=== PATIENT | female | born 1965 | race Caucasian/White ===

== ENCOUNTER 2016-07-08 11:07 | Outpatient (CLI) | payer MEDICAID | END 2016-07-08 23:59 | DX: Z13.9 Encounter for screening, unspecified (principal) ==

== ENCOUNTER 2017-03-09 17:15 | Outpatient (CLI) | payer MEDICAID | END 2017-03-09 17:16 | disposition EMS.NT | LOC: EMS 17:15 | PROVIDERS: ATTEND Surgery | DX: M79.602 Pain in left arm (principal); V43.53XA Car driver injured in collision with pick-up truck in traffic accident, initial encounter; W22.11XA Striking against or struck by driver side automobile airbag, initial encounter; Y92.414 Local residential or business street as the place of occurrence of the external cause ==

== ENCOUNTER 2017-07-01 01:50 | Emergency (ER) | payer MEDICAID ==
--- NOTE | 2017-07-01 02:37 | ED Physician Documentation ---
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 No: Incontinant of urine, Incontinant of stool, Vision changes, Palpitations, Dyspnea, Nausea / vomiting, Abdominal pain Injury occurred: Head injury Pain level now: 8 (FIGUEROA) Similar symptoms before: Has not had sx before Recently seen: Not recently seen - Additional information Additional information: has been experiencing episodic chest pain x 2 days without exacerbating or ameliorating factors; initially episodes were mostly left posterior chest near scapula but increasingly pronounced left upper chest. tonight she had disagreement with friend, took her dog for a walk and apparently had syncopal episode: she next remembers being on ground with medics assessing her. not clear who contacted 911, although she was on ground in street; she also recalls her friend was on scene as she was being assessed (friend is not present in ED) . she appears to have hit her head and her chief complaint is headache. denies chest pain on presentation and does not recall having chest pain when event happened, although she does not recall the event itself. given morphine and zofran by medics [employer] HUSBANDRY WORKER Review of Systems Constitutional: denies: Fatigue Eyes: reports: Reviewed and negative Cardiac: reports: Chest pain / pressure (recently but not at time of this evaluation). denies: Palpitations Respiratory: reports: Reviewed and negative GI: reports: Reviewed and negative : denies: Incontinent Skin: reports: Abrasion (s) Musculoskeletal: reports: Joint pain (right knee), Joint swelling. denies: Neck pain Neurologic: reports: Syncope, Headache, Head injury, LOC. 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 HEENT: Tonsil/Adenoidectomy - Present Medications Home Medications: Ambulatory Orders Medication Instructions Recorded Confirmed Duloxetine HCl [Cymbalta] 90 mg PO DAILY 07/01/17 07/01/17 Lisinopril 10 mg PO DAILY 07/01/17 07/01/17 Topiramate [Topamax] 25 mg PO DAILY 07/01/17 07/01/17 oxyCODONE/ACET 5/325 [Percocet 5 1 - 2 each PO Q6H PRN #8 tablet 07/01/17 mg/325 mg] - Allergies Allergies/Adverse Reactions: Allergies Allergy/AdvReac Type Severity Reaction Status Date / Time valium AdvReac Unknown Dizziness Uncoded 07/01/17 02:04 - Social History Does the pt smoke?: Yes Smoking Status: Current every day smoker Does the pt drink ETOH?: Yes Does the pt have substance abuse?: No - Immunizations Immunizations are current?: Yes - POLST Patient has POLST: No PD ED PE NORMAL - Vitals Vital signs reviewed: Yes - General General: Alert and oriented X 3, Well developed/nourished, Other (appears uncomfortable due to FIGUEROA) - HEENT HEENT: PERRL, EOMI, Moist mucous membranes, Pharynx benign, Other (circular forehead abrasion with tenderness and swelling) - Neck Neck: No bony TTP - Cardiac Cardiac: RRR, No murmur, No gallop, No rub - Respiratory Respiratory: No respiratory distress, Clear bilaterally - Abdomen Abdomen: Soft, Non tender - Back Back: No spinal TTP - Extremities Extremities: No edema - Neuro Neuro: Alert and oriented X 3, 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, No motor deficit, No sensory deficit, Normal speech PD ED PE EXPANDED - Extremities Extremities: Other (right knee swelling, bruising, tenderness over patella as well as medial and lateral aspects of joint) Results - Vitals Vitals: Vital Signs - 24 hr 07/01/17 07/01/17 07/01/17 04:19 05:10 05:56 Temperature 36.5 C Heart Rate 93 94 87 Respiratory 12 14 16 Rate Blood Pressure 141/91 H 129/76 148/88 H O2 Saturation 97 97 98 Oxygen O2 Source Room air - Labs Labs: Laboratory Tests 07/01/17 07/01/17 07/01/17 03:10 03:10 03:10 WBC 11.4 H RBC 4.47 Hgb 12.3 Hct 38.6 MCV 86.5 MCH 27.6 MCHC 31.9 L RDW 15.9 H Plt Count 365 MPV 9.0 Neut # 8.3 H Lymph # 2.5 Obion # 0.5 Eos # 0.0 Baso # 0.0 Absolute Nucleated RBC 0.00 Nucleated RBC % 0.0 Sodium 135 Potassium 3.9 Chloride 106 Carbon Dioxide 23 Anion Gap 6.0 BUN 18 Creatinine 0.7 Estimated GFR (MDRD) 89 Glucose 143 H Calcium 8.8 Troponin I < 0.04 Ethyl Alcohol < 5.0 - Rads (name of study) [facility] Radiology: Prelim report reviewed, See rad report CT chest angio Radiology: Prelim report reviewed, See rad report right knee xrays Radiology: Prelim report reviewed, See rad report PD MEDICAL DECISION MAKING - ED course Complexity details: reviewed results, re-evaluated patient, considered differential, d/w patient ED course: EKG is normal and blood tests and imaging are unremarkable for acute process. her FIGUEROA improved significantly with 0.5 mg IV dilaudid. results reviewed and she was comfortable with discharge home. I emphasized the need for follow-up as she might benefit from further testing. I also instructed her to return immediately or call 911 if she feels worse in any way Departure - Departure Disposition: 01 Home, Self Care Clinical Impression: Syncope Qualifiers: Syncope type: unspecified Qualified Code(s): R55 - Syncope and collapse Right knee sprain Qualifiers: Encounter type: initial encounter Involved ligament of knee: unspecified ligament Qualified Code(s): S83.91XA - Sprain of unspecified site of right knee , initial encounter Chest pain Qualifiers: Chest pain type: unspecified Qualified Code(s): R07.9 - Chest pain, unspecified Contusion of head Qualifiers: Encounter type: initial encounter Contusion of head detail: other part of head Qualified Code(s): S00.83XA - Contusion of other part of head, initial encounter Condition: Good Instructions: ED Chest Pain Atypical Unkn Cause, ED Head Injury Closed Sleep Mon, ED Sprain Knee, ED Fainting Unkn Cause Follow-Up: [facility] [Provider Group] [facility] [Provider Group] Prescriptions: oxyCODONE/ACET 5/325 [Percocet 5 mg/325 mg] 1 - 2 each PO Q6H PRN #8 tablet PRN Reason: Pain Discharge Date/Time: 07/01/17 06:03
[2017-07-01] MEDS ORDERED: HYDROmorphone 1 MG/ML CARPUJECT IVP STA (02:59)
[2017-07-01 03:17] LABS: BASOPHILS % (AUTO) 0.3 %; EOSINOPHILS % (AUTO) 0.1 %; HGB - HEMOGLOBIN 12.3 g/dL (12.0-16.0); LYMPHOCYTES # (AUTO) 2.5 10^3/uL (1.5-3.5); MEAN CORPUSCULAR HEMOGLOBIN 27.6 pg (27.0-31.0); MEAN CORPUSCULAR HGB CONC 31.9 g/dL (32.0-36.0); MEAN CORPUSCULAR VOLUME 86.5 fL (81.0-99.0); MONOCYTES # (AUTO) 0.5 10^3/uL (0.0-1.0); MONOCYTES % (AUTO) 4.3 %; NEUTROPHILS # (AUTO) 8.3 10^3/uL (1.5-6.6); NEUTROPHILS % (AUTO) 73.3 %; PLT - PLATELET COUNT 365 10^3/uL (130-450); RED BLOOD COUNT 4.47 10^6/uL (4.20-5.40); RED CELL DISTRIBUTION WIDTH 15.9 % (12.0-15.0); WHITE BLOOD COUNT 11.4 x10^3/uL (4.8-10.8)
[2017-07-01 03:24] LABS: BUN - BLOOD UREA NITROGEN 18 mg/dL (6-20); CALCIUM 8.8 mg/dL (8.5-10.3); CARBON DIOXIDE - CO2 23 mmol/L (21-32); CHLORIDE 106 mmol/L (101-111); CREATININE 0.7 mg/dL (0.4-1.0); GFR - MDRD 89 (>89); GLUCOSE 143 mg/dL (70-100); SODIUM 135 mmol/L (135-145)
[2017-07-01] MEDS ORDERED: IOPAMIDOL-300 100 ML VIAL ONE (03:50)
--- NOTE | 2017-07-01 04:02 | XRAY Report ---
EXAM: RIGHT KNEE RADIOGRAPHY EXAM DATE: 07/01/2017 03:39 AM. CLINICAL HISTORY: Right knee pain after injury. COMPARISON: None. TECHNIQUE: 4 views. FINDINGS: Bones: No fracture seen. Joints: No dislocation. Joint spaces are relatively well preserved. No joint effusion identified. Soft Tissues: There may be minimal soft tissue swelling. IMPRESSION: 1. No acute osseous abnormality seen. [facility] Referring Provider Line: [phone] SITE ID: [id number]
--- NOTE | 2017-07-01 04:02 | XRAY Preliminary Report ---
Exam: XR KNEE 4 VIEW RT IMPRESSION: 1. No acute osseous abnormality seen. [facility] SITE ID: [id number]
[2017-07-01] MEDS ORDERED: IOPAMIDOL-300 100 ML VIAL IVP ONE ×2 (04:12)
--- NOTE | 2017-07-01 04:34 | CT Report ---
EXAM: CT ANGIOGRAM CHEST EXAM DATE: 07/01/2017 04:16 AM. CLINICAL HISTORY: Chest pain, syncope. COMPARISON: None. TECHNIQUE: Routine helical imaging was performed through the chest in the pulmonary arterial phase. I V Contrast: Nonionic. Reconstructions: Coronal 3-D MIP reconstructions.Sagittal and coronal. In accordance with CT protocol optimization, one or more of the following dose reduction techniques w ere utilized for this exam: automated exposure control, adjustment of mA and/or KV based on patient s ize, or use of iterative reconstructive technique. FINDINGS: Pulmonary Arteries: Diagnostic quality: Adequate through the segmental arteries. No evidence for acute or chronic pulmona ry emboli. No evidence of right heart strain. Lungs/Pleura: No alveolar consolidation or pleural effusion seen. No pneumothorax. Mediastinum: Heart size is normal. Mild coronary artery calcifications. No lymphadenopathy seen. Thoracic Aorta: Mild atherosclerosis. No aneurysm or dissection. Upper Abdomen: Possible fatty liver. Gastric bypass. Rectus diastasis with multiple ventral hernias. Other: None. IMPRESSION: 1. No pulmonary emboli seen. 2. Mild coronary artery calcifications. 3. Rectus diastasis with multiple ventral hernias. [facility] Referring Provider Line: [phone] SITE ID: [id number]
--- NOTE | 2017-07-01 04:34 | CT Preliminary Report ---
Exam: CT CHEST ANGIO (PE) IMPRESSION: 1. No pulmonary emboli seen. 2. Mild coronary artery calcifications. 3. Rectus diastasis with multiple ventral hernias. [facility] SITE ID: [id number]
--- NOTE | 2017-07-01 04:38 | CT Report ---
EXAM: CT HEAD EXAM DATE: 07/01/2017 04:17 AM. CLINICAL HISTORY: Syncope, head injury. COMPARISON: None. TECHNIQUE: Multiaxial CT images were obtained from the foramen magnum to the vertex. Reformats: Coron al. IV contrast: None. In accordance with CT protocol optimization, one or more of the following dose reduction techniques w ere utilized for this exam: automated exposure control, adjustment of mA and/or KV based on patient s ize, or use of iterative reconstructive technique. FINDINGS: Parenchyma: No intraparenchymal hemorrhage. No evidence of mass, midline shift, or CT findings of inf arction. Jenkins-white differentiation is distinct. Extraaxial Spaces: Normal for age. No subdural or epidural collections identified. Ventricles: Normal in size and position. Sinuses and Orbits: Imaged paranasal sinuses, orbits, and mastoids show no significant abnormality. Bones: No evidence of fracture or calvarial defect. Other: None. IMPRESSION: Negative CT head without contrast. [facility] Referring Provider Line: [phone] SITE ID: [id number]
--- NOTE | 2017-07-01 04:38 | CT Preliminary Report ---
Exam: CT HEAD W/O IMPRESSION: Negative CT head without contrast. [facility] SITE ID: [id number]
[2017-07-01] MEDS ORDERED: oxyCODONE/ACET 5/325 Prepack 4 PO STA (05:45)
[2017-07-01 05:57] VITALS: BP 148/88
== END 2017-07-01 06:03 | disposition home or self-care (01) ==
LOC: EDUNIT# → ED 01:50
DX: R55 Syncope and collapse (principal); R07.9 Chest pain, unspecified; S83.91XA Sprain of unspecified site of right knee, initial encounter; S00.83XA Contusion of other part of head, initial encounter; F32.9 Major depressive disorder, single episode, unspecified; F41.9 Anxiety disorder, unspecified; F17.200 Nicotine dependence, unspecified, uncomplicated; W19.XXXA Unspecified fall, initial encounter
CPT/HCPCS: 70450; 71275; 73564; 80048; 80320; 84484; 85025; 93005; 96374; 99284; 99285; J1170; Q9967; 36415